=== PATIENT | female | born 2000 | race Hispanic/Latino ===

== ENCOUNTER 2025-02-02 17:43 | Emergency (ER) | payer OTHER ==
[~2025-02-02] VITALS: Ht 162.6 cm; Wt 73.6 kg
[2025-02-02 17:47] VITALS: TEMP 97.5
[2025-02-02] MEDS: NS (Normal Saline) 0.9% 1,000 ML IV ONE (20:44)
[2025-02-02] MEDS: FAMOTIDINE 20MG/2ML VIAL IVP ONE (20:44)
[2025-02-02] MEDS: KETOROLAC 30 MG/ML 1ML VIAL IV ONE (20:47)
[2025-02-02 20:50] LABS: BASO # 0.1 10^3/uL (0.0-0.2); BASO % 0.5 % (0.0-1.0); EOS # 0.5 10^3/uL (0.0-0.5); EOS % 4.3 % (0.0-3.0); HEMATOCRIT 41.5 % (36.0-47.0); HEMOGLOBIN 13.6 g/dl (12.0-15.5); LYMPH # 3.2 10^3/uL (1.5-5.0); LYMPH % 28.8 % (24.0-44.0); MEAN CORPUSCULAR HEMOGLOBIN 27.3 pg (27.0-33.0); MEAN CORPUSCULAR HGB CONC 32.8 g/dl (32.0-36.5); MEAN CORPUSCULAR VOLUME 83.2 fl (80.0-96.0); MONO # 0.9 10^3/uL (0.0-0.8); MONO % 7.8 % (2.0-8.0); NEUTROPHILS # 6.5 10^3/uL (1.5-8.5); NEUTROPHILS % 58.4 % (36.0-66.0); PLATELET COUNT, AUTOMATED 342 10^3/uL (150-450); RED BLOOD COUNT 4.99 10^6/uL (4.00-5.40); WHITE BLOOD COUNT 11.1 10^3/uL (4.0-10.0)
[2025-02-02] MEDS ORDERED: ISOVUE-370 76% 100ML VIAL As Ordered ONE (20:50)
[2025-02-02 21:11] LABS: LIPASE 29 U/L (12-53)
[2025-02-02 21:13] LABS: ALBUMIN 3.7 G/DL (3.2-5.2); ALKALINE PHOSPHATASE 77 U/L (35-104); ALT/SGPT 18 U/L (7.0-40); AST/SGOT 15 U/L (<34); BILIRUBIN,DIRECT < 0.1 MG/DL (<0.4); BILIRUBIN,TOTAL 0.3 MG/DL (0.3-1.2); BLOOD UREA NITROGEN 8 MG/DL (9-23); CALCIUM LEVEL 9.5 MG/DL (8.5-10.1); CARBON DIOXIDE LEVEL 27 MMOL/L (20-31); CHLORIDE LEVEL 106 MMOL/L (98-107); CREATININE FOR GFR 0.75 MG/DL (0.55-1.30); GLOMERULAR FILTRATION RATE > 90.0 (>60); GLUCOSE, FASTING 80 MG/DL (60-100); POTASSIUM SERUM 3.8 MMOL/L (3.5-5.1); SODIUM LEVEL 142 MMOL/L (136-145); TOTAL PROTEIN 7.4 G/DL (5.7-8.2)
[2025-02-02] MEDS: ONDANSETRON 4MG TAB PO ONE (21:21)
[2025-02-02] MEDS ORDERED: ONDA-282 PO (22:17)
[2025-02-02] MEDS: SUCRALFATE SUSP 1GM/10ML UD PO ONE (22:18)
[2025-02-02 22:20] VITALS: BP 124/66; O2SAT 100
== END 2025-02-02 22:29 | disposition home or self-care (01) ==
LOC: M ED 17:43
DX: A09 Infectious gastroenteritis and colitis, unspecified (principal); J45.909 Unspecified asthma, uncomplicated; Z79.899 Other long term (current) drug therapy
CPT/HCPCS: 74177; 76705; 80047; 80048; 80076; 83605; 83690; 84702; 85025; 87486; 87581; 87633; 87798; 93041; 96361; 96374; 96375; 99284; J1308; J1885; Q9967

== ENCOUNTER → 2025-04-09 | Outpatient (CLI) | payer OTHER ==
[~2025-04-09] MED LIST: METHACHOLINE KIT (6 VIAL.NEB PREMIX) INH ONE; ONDA-282 PO
== END ==
LOC: M CARPUL 13:39
PROVIDERS: ATTEND Physician Assistant
DX: R06.02 Shortness of breath (principal)
CPT/HCPCS: 94070; 95070; J7674

== ENCOUNTER 2025-05-06 02:24 | Emergency (ER) | payer OTHER ==
[~2025-05-06] VITALS: Ht 162.6 cm; Wt 75.0 kg
[~2025-05-06 02:24] MED LIST changes: -METHACHOLINE KIT (6 VIAL.NEB PREMIX) INH ONE
[2025-05-06] MEDS: IPRATROPIUM 0.5 MG/ALBUTEROL 2.5 MG INH SOL UD 3 ML NEB PRN (03:16)
[2025-05-06 03:47] LABS: BASO # 0.0 10^3/uL (0.0-0.2); BASO % 0.4 % (0.0-1.0); EOS # 0.2 10^3/uL (0.0-0.5); EOS % 2.9 % (0.0-3.0); LYMPH # 3.0 10^3/uL (1.5-5.0); LYMPH % 36.0 % (24.0-44.0); MONO # 0.6 10^3/uL (0.0-0.8); MONO % 7.2 % (2.0-8.0); NEUTROPHILS # 4.5 10^3/uL (1.5-8.5); NEUTROPHILS % 53.4 % (36.0-66.0); PLATELET COUNT, AUTOMATED 275 10^3/uL (150-450)
[2025-05-06 04:11] LABS: CK-MB VALUE MASS < 1.0 NG/ML (<3.6)
[2025-05-06 04:12] LABS: ALT/SGPT 15 U/L (7.0-40); AST/SGOT 21 U/L (<34); CALCIUM LEVEL 8.9 MG/DL (8.5-10.1); CARBON DIOXIDE LEVEL 23 MMOL/L (20-31); CHLORIDE LEVEL 106 MMOL/L (98-107); CREATININE FOR GFR 0.71 MG/DL (0.55-1.30); GLOMERULAR FILTRATION RATE > 90.0 (>60); POTASSIUM SERUM 3.3 MMOL/L (3.5-5.1); SODIUM LEVEL 142 MMOL/L (136-145)
[2025-05-06 04:15] LABS: THYROXINE (T4) 9.5 UG/DL (4.5-10.9)
[2025-05-06 04:23] LABS: CPK CREATINE PHOSPHOKINASE 71 U/L (34-145)
[2025-05-06] MEDS: IPRATROPIUM 0.5 MG/ALBUTEROL 2.5 MG INH SOL UD 3 ML NEB ONE (07:38)
[2025-05-06 07:44] LABS: HCG, SERUM QUALITATIVE NEGATIVE (NEGATIVE)
[2025-05-06] MEDS ORDERED: ISOVUE-370 76% 100 ML VIAL As Ordered ONE (08:06)
[2025-05-06] MEDS ORDERED: PRED20TA PO (08:34)
[2025-05-06] MEDS: POTASSIUM CHLORIDE 10MEQ SR TABLET PO ONE (09:26)
[2025-05-06 09:32] VITALS: BP 126/68; TEMP 98.3; O2SAT 99
== END 2025-05-06 09:33 | disposition home or self-care (01) ==
LOC: M ED 02:24
DX: R07.89 Other chest pain (principal); J45.901 Unspecified asthma with (acute) exacerbation; Z79.52 Long term (current) use of systemic steroids; Z79.899 Other long term (current) drug therapy
CPT/HCPCS: 71045; 71275; 80048; 80076; 82550; 82553; 83605; 83880; 84436; 84443; 84484; 84703; 85025; 87486; 87581; 87633; 87798; 93005; 93041; 94640; 94760; 96374; 99285; J2919; Q9967

== ENCOUNTER 2025-05-25 12:44 | Emergency (ER) | payer OTHER ==
[~2025-05-25] VITALS: Ht 162.6 cm; Wt 75.7 kg
[~2025-05-25 12:44] MED LIST changes: +PRED20TA PO
[2025-05-25] MEDS: IPRATROPIUM 0.5 MG/ALBUTEROL 2.5 MG INH SOL UD 3 ML NEB ONE ×2 (13:10→14:28)
[2025-05-25 14:42] LABS: BASO # 0.0 10^3/uL (0.0-0.2); BASO % 0.5 % (0.0-1.0); EOS # 0.3 10^3/uL (0.0-0.5); EOS % 3.6 % (0.0-3.0); LYMPH # 2.3 10^3/uL (1.5-5.0); LYMPH % 29.2 % (24.0-44.0); MONO # 0.5 10^3/uL (0.0-0.8); MONO % 6.6 % (2.0-8.0); NEUTROPHILS # 4.7 10^3/uL (1.5-8.5); NEUTROPHILS % 59.8 % (36.0-66.0); PLATELET COUNT, AUTOMATED 319 10^3/uL (150-450)
[2025-05-25 15:04] LABS: CK-MB VALUE MASS < 1.0 NG/ML (<3.6)
[2025-05-25 15:06] LABS: CALCIUM LEVEL 9.7 MG/DL (8.5-10.1); CARBON DIOXIDE LEVEL 31 MMOL/L (20-31); CHLORIDE LEVEL 106 MMOL/L (98-107); CPK CREATINE PHOSPHOKINASE 78 U/L (34-145); CREATININE FOR GFR 0.72 MG/DL (0.55-1.30); GLOMERULAR FILTRATION RATE > 90.0 (>60); POTASSIUM SERUM 4.3 MMOL/L (3.5-5.1); SODIUM LEVEL 144 MMOL/L (136-145)
[2025-05-25 15:18] VITALS: BP 114/56; TEMP 97; O2SAT 100
[2025-05-25] MEDS ORDERED: PRED20TA PO (15:22)
[2025-05-25] MEDS ORDERED: NEBU1EAC80 MC (15:22)
[2025-05-25] MEDS ORDERED: IPRA0.00 INH (15:22)
== END 2025-05-25 15:33 | disposition home or self-care (01) ==
LOC: M ED 12:44
DX: J45.901 Unspecified asthma with (acute) exacerbation (principal); Z79.51 Long term (current) use of inhaled steroids; Z79.52 Long term (current) use of systemic steroids; Z79.899 Other long term (current) drug therapy

== ENCOUNTER 2025-06-11 16:39 | Emergency (ER) | payer OTHER ==
[2025-06-11] MEDS: NS (Normal Saline) 0.9% 1,000 ML IV ONE (17:16)
[2025-06-11] MEDS: FAMOTIDINE IV BAG 20 MG in IV 1 EA IV ONE (17:23)
[2025-06-11 20:00] VITALS: BP 129/68; O2SAT 99
[2025-06-11 20:07] VITALS: TEMP 99
== END 2025-06-11 20:09 | disposition home or self-care (01) ==
LOC: EDBD 16:39 → M ED 16:39
DX: T78.40XA Allergy, unspecified, initial encounter (principal); R94.31 Abnormal electrocardiogram [ECG] [EKG]; J45.909 Unspecified asthma, uncomplicated; Z79.51 Long term (current) use of inhaled steroids; Z79.899 Other long term (current) drug therapy; Z79.52 Long term (current) use of systemic steroids
CPT/HCPCS: 93005; 96365; 96366; 99284; J1308; J2919

== ENCOUNTER → 2025-06-11 | Outpatient (REF) | payer OTHER ==
[~2025-06-11] MED LIST changes: +IPRA0.00 INH; +NEBU1EAC80 MC
[2025-06-11 14:19] LABS: BASO # 0.0 10^3/uL (0.0-0.2); BASO % 0.5 % (0.0-1.0); EOS # 0.1 10^3/uL (0.0-0.5); EOS % 2.0 % (0.0-3.0); LYMPH # 1.2 10^3/uL (1.5-5.0); LYMPH % 19.6 % (24.0-44.0); MONO # 0.7 10^3/uL (0.0-0.8); MONO % 10.9 % (2.0-8.0); NEUTROPHILS # 4.1 10^3/uL (1.5-8.5); NEUTROPHILS % 66.3 % (36.0-66.0); PLATELET COUNT, AUTOMATED 272 10^3/uL (150-450)
[2025-06-12 17:56] LABS: BERMUDA GRASS IGE < 0.10 kU/L (<0.10); BIRCH IGE < 0.10 kU/L (<0.10); COMMON RAGWEED SHORT IGE < 0.10 kU/L (<0.10); D001 IGE D PTERONYSSINUS 1.00 kU/L (<0.10); D002-IGE D FARINAE 0.45 kU/L (<0.10); E001-IGE CAT DANDER < 0.10 kU/L (<0.10); E005-IGE DOG DANDER < 0.10 kU/L (<0.10); ELM IGE < 0.10 kU/L (<0.10); I006 IGE COCKROACH < 0.10 kU/L (<0.10); IMMUNOGLOBULIN E FOR ALLERGENS 16 kU/L (<OR=114); M006 IGE ALTERNIA ALTERNATA < 0.10 kU/L (<0.10); M1-PENICILLIUM NOTATUM < 0.10 kU/L (<0.10); MOUSE URINE IGE < 0.10 kU/L (<0.10); MUGWORT IGE < 0.10 kU/L (<0.10); OAK IGE < 0.10 kU/L (<0.10); ROUGH PIGWEED IGE < 0.10 kU/L (<0.10); SHEEP SORREL IGE < 0.10 kU/L (<0.10); T001-IGE MAPLE BOX ELDER < 0.10 kU/L (<0.10); T006-IGE MOUNTAIN CEDAR < 0.10 kU/L (<0.10); T014 COTTONWOOD IGE < 0.10 kU/L (<0.10); TIMOTHY GRASS IGE < 0.10 kU/L (<0.10); WALNUT TREE IGE < 0.10 kU/L (<0.10); WHITE ASH IGE < 0.10 kU/L (<0.10); WHITE MULBERRY IGE < 0.10 kU/L (<0.10)
== END ==
LOC: M LAB REF 13:02
PROVIDERS: ATTEND Physician Assistant
DX: J45.30 Mild persistent asthma, uncomplicated (principal); Z79.899 Other long term (current) drug therapy

== ENCOUNTER 2025-07-23 20:21 | Emergency (ER) | payer OTHER ==
[~2025-07-23] VITALS: Ht 162.6 cm; Wt 74.1 kg
[2025-07-23 22:42] VITALS: BP 132/68; TEMP 98; O2SAT 100
== END 2025-07-23 23:52 | disposition left against medical advice (07) ==
LOC: M ED 20:21
DX: Z53.21 Procedure and treatment not carried out due to patient leaving prior to being seen by health care provider (principal)

== ENCOUNTER 2025-08-20 18:28 | Emergency (ER) | payer OTHER ==
[~2025-08-20] VITALS: Ht 154.9 cm; Wt 72.9 kg
[2025-08-20] MEDS ORDERED: BUDE10.22 (18:44)
[2025-08-20] MEDS ORDERED: FEXO-63 (18:44)
[2025-08-20] MEDS ORDERED: ALBU8.5H (18:44)
[2025-08-21] MEDS: ACETAMINOPHEN *IV* 1,000 MG in IV 1 EA IV ONE (01:08)
[2025-08-21 01:20] LABS: BASO # 0.0 10^3/uL (0.0-0.2); BASO % 0.4 % (0.0-1.0); EOS # 0.3 10^3/uL (0.0-0.5); EOS % 3.6 % (0.0-3.0); LYMPH # 2.7 10^3/uL (1.5-5.0); LYMPH % 33.9 % (24.0-44.0); MONO # 0.7 10^3/uL (0.0-0.8); MONO % 9.1 % (2.0-8.0); NEUTROPHILS # 4.1 10^3/uL (1.5-8.5); NEUTROPHILS % 52.7 % (36.0-66.0); PLATELET COUNT, AUTOMATED 295 10^3/uL (150-450)
[2025-08-21 01:43] LABS: CALCIUM LEVEL 8.6 MG/DL (8.5-10.1); CARBON DIOXIDE LEVEL 27 MMOL/L (20-31); CHLORIDE LEVEL 104 MMOL/L (98-107); CREATININE FOR GFR 0.64 MG/DL (0.55-1.30); GLOMERULAR FILTRATION RATE > 90.0 (>60); MAGNESIUM LEVEL 2.0 MG/DL (1.8-2.4); POTASSIUM SERUM 3.6 MMOL/L (3.5-5.1); SODIUM LEVEL 139 MMOL/L (136-145)
[2025-08-21 02:02] LABS: HCG, SERUM QUALITATIVE POSITIVE (NEGATIVE)
[2025-08-21 04:15] VITALS: BP 112/63; TEMP 97.6; O2SAT 100
[2025-08-21] MEDS: KETOROLAC 30 MG/ML 1 ML VIAL IV ONE (04:22)
== END 2025-08-21 04:30 | disposition home or self-care (01) ==
LOC: M ED 18:28
DX: R07.9 Chest pain, unspecified (principal); J45.909 Unspecified asthma, uncomplicated; Z79.52 Long term (current) use of systemic steroids; Z79.899 Other long term (current) drug therapy
CPT/HCPCS: 71046; 80048; 83735; 84484; 84703; 85025; 85379; 87486; 87581; 87633; 87798; 93005; 96374; 96375; 99284; J0134; J1885